=== PATIENT | male | born 1965 | race Caucasian/White ===

== ENCOUNTER → 2021-07-01 08:22 | Outpatient (BNVA) | payer BC, SELFPAY | PROVIDERS: PCP Internal Medicine; Visit Provider Internal Medicine | DX: E78.00 Pure hypercholesterolemia, unspecified (principal); R30.0 Dysuria; Z12.11 Encounter for screening for malignant neoplasm of colon | CPT/HCPCS: 80053; 80061; 81000; 83036; 84443; 87635; G0103 ==

== ENCOUNTER 2021-07-08 07:37 | Day surgery (SDC) | payer BC, SELFPAY ==
[2021-06-30 13:58] VITALS: BMI 30.1
[2021-07-08 07:58] VITALS: BP 172/85; PULSE 75; RESP 16; TEMP 37; O2SAT 95
[2021-07-08] MEDS: sodium chloride 0.9% 1,000 ML 30 ML IV (08:05)
--- NOTE | 2021-07-08 08:23 | ANES.PREANE2 ---
Pre-Anesthetic Assessment Pre-Anesthetic Assessment: Height/Weight: Height 1.78 m Weight 95.254 kg Temp Pulse Resp BP Pulse Ox 98.6 F 75 16 172/85 95 07/08/21 07:58 07/08/21 07:58 07/08/21 07:58 07/08/21 07:58 07/08/21 07:58 Preop Diagnosis: screen Proposed Procedure: Operation Date: 07/08/21 09:00 Proposed Procedures p Colonoscopy 02668 E78.00(Not Applicable) - Malvin Madrigal MD Was Beta Rajeev taken within 24 hours: N/A Was Clonidine taken within 24 hours: N/A Last intake: Intake Last Liquid Date 07/07/21 Last Liquid Time 22:00 Last Solid Date 07/06/21 Last Solid Time 00:00 Social: Social History: No alcohol and No tobacco Exam: Pre-Anes Outpt Exam: alert, oriented x 3, clear to auscultation bilaterally and regular rate & rhythm Airway: Submandibular: WNL Cervical ROM: WNL MP: 2 Pulmonary: Pulmonary: None reported CV/HEM: CV/HEM: CAD : : None reported Hepatic: Hepatic: None reported GI: GI: None reported Metabolic: Metabolic: Hyperlipidemia Musc/skel: Musc/skel: None reported Neuropsych: Neuropsych: None reported Anesthetic Plan: ASA status: 3 Anesthesia: MAC Meds/Allergies Current Medications: Current Medications Generic Name Dose Route Start Last Admin Trade Name Freq PRN Reason Stop Dose Admin Sodium Chloride 1,000 mls @ 30 ml s/hr 07/08/21 07:45 07/08/21 08:05 Sodium Chloride 0.9% IV 07/09/21 07:44 30 mls/hr .Q24H BENITO Administration PFSH Anesthesia PFSH: Medical History (Updated 06/29/21 @ 16:00 by Malvin Madrigal MD) CAD (coronary artery disease) Hypercholesterolemia Social History (Updated 06/29/21 @ 15:30 by LÓPEZ Nicholson) Smoking and tobacco status: never smoked Adopted: No Marital status: Number of children: 1 service: No History of recent travel: No Data Anesthesia Cardiac Studies: No Data to Display
--- NOTE | 2021-07-08 09:11 | P.HP_ITS ---
Same Day Surgery H&P Indication for Procedure/HPI DATE OF PROCEDURE: July 08, 2021 CHIEF COMPLAINT/INDICATIONFOR SURGICAL PROCEDURE: Screening PREOP DIAGNOSIS: screen PLANNED PROCEDRUE: Operation Date: 07/08/21 09:00 Proposed Procedures p Colonoscopy 89309 E78.00(Not Applicable) - Malvin Madrigal MD Medications/Allergies* Home Medications Medication Instructions Recorded Confirmed Type fluticasone propionate 50 1 spray INTRANASAL DAILY 06/28/21 07/08/21 History mcg/actuation nasal spray,suspension ascorbic acid (vitamin C) 1,000 mg 1 g PO DAILY tab 06/29/21 07/08/21 History tablet aspirin 81 mg chewable tablet 81 mg PO DAILY 06/29/21 07/08/21 History azelastine 137 mcg (0.1 %) nasal 1 spray INTRANASAL BID 06/29/21 07/08/21 History spray aerosol drjyxkurcg-rjndknaeastvy-mcggqscx 1 tab PO Q6H PRN 06/29/21 07/08/21 History 50 mg-325 mg-40 mg tablet cholecalciferol (vitamin D3) 25 25 mcg PO DAILY 06/29/21 07/08/21 History mcg (1,000 unit) capsule fluticasone propionate 93 1 spray INTRANASAL BID 06/29/21 07/08/21 History mcg/actuation breath activated aerosol montelukast 10 mg tablet 10 mg PO DAILY 06/29/21 07/08/21 History naproxen sodium 220 mg capsule 440 mg PO BID PRN cap 06/29/21 07/08/21 History pravastatin 20 mg tablet 20 mg PO DAILY 06/29/21 07/08/21 History Allergies/Adverse Reactions Allergy/AdvReac Type Severity Reaction Status Date / Time sumatriptan Allergy Intermediate unknown Verified 07/01/21 08:33 Current Medications: Generic Name Dose Route Start Last Admin Trade Name Freq PRN Reason Stop Dose Admin Sodium Chloride 1,000 mls @ 30 mls/hr 07/08/21 07:45 07/08/21 08:05 Sodium Chloride 0.9% IV 07/09/21 07:44 30 mls/hr .Q24H BENITO Administration Pertinent History/Comorbid Conditions* Medical History (Updated 06/29/21 @ 16:00 by Malvin Madrigal MD) CAD (coronary artery disease) Hypercholesterolemia Social History Smoking and tobacco status: never smoked Adopted: No Marital status: Number of children: 1 service: No History of recent travel: No Pertinent Exam Findings alert, oriented x 3, clear to auscultation bilaterally, regular rate & rhythm, operative site marked and procedure specific exam findings Recommendations Surgery/Procedure today Coding Level of Care Code Acute Veterinarian P[employer] for Anahy Wyatt
[2021-07-08 09:24] VITALS: BP 143/82; PULSE 71; RESP 16; TEMP 36.3; O2SAT 93
[2021-07-08 09:34] VITALS: BP 162/90; PULSE 68; RESP 16; O2SAT 94
--- NOTE | 2021-07-08 11:11 | PM.PACU ---
PACU note Post-Anesthesia Exam: awake and vital signs stable Disposition: discharged
== END 2021-07-08 09:50 | disposition home or self-care (01) ==
PROVIDERS: PCP Internal Medicine; Visit Provider Internal Medicine
PROC: 0DJD8ZZ Inspection of Lower Intestinal Tract, Via Natural or Artificial Opening Endoscopic (ICD-10-PCS; CPT 45378; principal; 2021-07-08 09:00)
DX: Z12.11 Encounter for screening for malignant neoplasm of colon (principal); K57.30 Diverticulosis of large intestine without perforation or abscess without bleeding; Z79.82 Long term (current) use of aspirin; I25.10 Atherosclerotic heart disease of native coronary artery without angina pectoris; E78.00 Pure hypercholesterolemia, unspecified; E78.5 Hyperlipidemia, unspecified
CPT/HCPCS: 45378; 96360; 96361; J2704; J7030

== ENCOUNTER 2021-08-28 00:11 | Emergency (ER) | payer BC, SELFPAY ==
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
[2021-08-28 00:19] VITALS: BP 184/103; PULSE 92; RESP 18; TEMP 36.2; O2SAT 96; BMI 28.7
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
[2021-08-28] MEDS: acetaminophen 500 mg Tablet 1000 MG PO (02:19)
[2021-08-28 02:20] VITALS: BP 165/89; PULSE 90; RESP 19; O2SAT 98
== END 2021-08-28 02:20 | disposition home or self-care (01) ==
PROVIDERS: Emergency Provider Nurse Practitioner Family; PCP Internal Medicine
DX: S01.81XA Laceration without foreign body of other part of head, initial encounter (principal); S09.90XA Unspecified injury of head, initial encounter; F10.129 Alcohol abuse with intoxication, unspecified; W17.89XA Other fall from one level to another, initial encounter
CPT/HCPCS: 12015; 70450; 72125; 96372; 99283; J3411

== ENCOUNTER 2021-12-14 07:45 | Outpatient (CLI) | payer BC, SELFPAY ==
[2021-12-14 08:25] LABS: Alanine Aminotransferase 53 U/L (0-41); Albumin Level 4.9 g/dL (3.5-5.2); Alkaline Phosphatase 84 IU/L (40-130); Anion Gap 14.3 (5-19); Aspartate Amino Transferase 39 U/L (0-40); Blood Urea Nitrogen 13 mg/dL (6-20); Calcium 8.8 mg/dL (8.5-10.5); Carbon Dioxide 26 mmol/L (22-29); Chloride 103 mmol/L (98-107); Globulin 2.6 g/dL (1.3-4.6); Glomerular Filtration Rate 99.3 mL/min (90-130); Glucose 117 mg/dL (65-115); Osmolality Calculated 289 mOsm/kg (285-295); Potassium 4.3 mmol/L (3.5-5.1); Sodium 139 mmol/L (136-145); Total Bilirubin 0.5 mg/dL (0.15-1.2); Total Protein 7.5 g/dL (6.6-8.7)
== END 2021-12-14 07:46 | disposition home or self-care (01) ==
LOC: LAB 07:47
PROVIDERS: PCP Internal Medicine; Visit Provider Internal Medicine
DX: R74.01 Elevation of levels of liver transaminase levels (principal)
CPT/HCPCS: 36415; 80053

== ENCOUNTER → 2021-12-15 15:41 | Outpatient (BNVA) | payer BC, SELFPAY | PROVIDERS: PCP Internal Medicine; Referring Provider Internal Medicine; Visit Provider Podiatrist Foot & Ankle Surgery | DX: M79.671 Pain in right foot (principal); M79.672 Pain in left foot | CPT/HCPCS: 73630 ==

== ENCOUNTER 2022-01-24 06:05 | Outpatient (CLI) | payer BC, SELFPAY ==
--- NOTE | 2022-01-24 06:30 | USCV_ITS ---
Wiliam Albrecht Age: 56 Gender: M : 1965 Exam Date: 01/24/2022 06:21 Ordering Phys: Malvin Madrigal MD Technologist: Exam Location: [facility] [place] Indication: rt leg pain and swelling PROCEDURES: Venous duplex imaging was performed in only the right lower extremity. The following venous structures were evaluated: common femoral vein, profunda vein, proximal portion of the greater saphenous vein, superficial femoral vein, and the popliteal vein. In addition, the posterior tibial and peroneal trunk were evaluated. On the right side, the common femoral, superficial femoral, profunda femoral, popliteal, posterior tibial, greater saphenous veins and the peroneal trunk were identified and interrogated in the standard fashion. These veins were found to be easily compressible with spontaneous blood flow. No evidence of insufficiency or thrombus noted. FINDINGS: Normal 2-D Doppler and augmentation and compressibility throughout the lower extremity venous structures. Additional imaging through the proximal calf veins also reveals no thrombus. Limited evaluation of the greater saphenous vein is patent with no thrombus.. CONCLUSIONS No evidence of right lower extremity DVT. Ravinder Elmore MD (Electronically Signed) Final Date: 24 January 2022 17:58 S
== END 2022-01-24 06:06 | disposition home or self-care (01) ==
LOC: RAD 06:06
PROVIDERS: PCP Internal Medicine; Visit Provider Internal Medicine
DX: M79.89 Other specified soft tissue disorders (principal); M79.604 Pain in right leg
CPT/HCPCS: 93971

== ENCOUNTER 2022-05-15 10:57 | Outpatient (CLI) | payer BC, SELFPAY | END 2022-05-15 10:58 | disposition home or self-care (01) | LOC: SPT 11:09 | PROVIDERS: PCP Internal Medicine; Visit Provider Podiatrist Foot & Ankle Surgery | DX: Z46.89 Encounter for fitting and adjustment of other specified devices (principal); M21.40 Flat foot [pes planus] (acquired), unspecified foot; M76.829 Posterior tibial tendinitis, unspecified leg | CPT/HCPCS: L3030 ==